=== PATIENT | female | born 1955 ===

== ENCOUNTER 2021-06-29 13:57 | Outpatient (CLI) | payer OTHER | END 2021-06-29 14:08 | disposition home or self-care (01) | LOC: TOM 13:57 | PROVIDERS: ATTEND Urology | DX: N20.0 Calculus of kidney (principal); N20.1 Calculus of ureter ==

== ENCOUNTER 2021-06-30 07:30 | Outpatient (CLI) | payer OTHER | END 2021-06-30 07:31 | disposition home or self-care (01) | LOC: LAB 07:30 | PROVIDERS: ATTEND Urology | DX: N20.0 Calculus of kidney (principal) ==

== ENCOUNTER 2021-07-13 07:13 | Outpatient (CLI) | payer OTHER | END 2021-07-13 07:33 | disposition home or self-care (01) | LOC: LAB 07:13 | PROVIDERS: ATTEND Urology | DX: E03.9 Hypothyroidism, unspecified (principal); N20.0 Calculus of kidney; R31.0 Gross hematuria ==

== ENCOUNTER 2021-09-08 06:26 | Outpatient (CLI) | payer OTHER | END 2021-09-08 06:27 | disposition home or self-care (01) | LOC: LAB 06:26 | PROVIDERS: ATTEND Urology | DX: N20.0 Calculus of kidney (principal) ==

== ENCOUNTER 2021-09-14 12:15 | Inpatient (IN) | payer OTHER ==
[~2021-09-14] VITALS: Ht 149.9 cm; Wt 54.4 kg
[2021-09-16] MEDS ORDERED: SYNTHROID50 MCG (08:18)
[2021-09-16] MEDS ORDERED: FUSION PLUS CA1 EACH (08:18)
== END 2021-09-17 11:43 | disposition home or self-care (01) | DRG 694 ==
LOC: O/R 09-15 11:20 → SURG 09-15 11:20 → SURH 09-15 12:15 → SURG 09-15 14:42
PROVIDERS: ADMIT Urology; ATTEND Urology
PROC: BT1F1ZZ Fluoroscopy of Left Kidney, Ureter and Bladder using Low Osmolar Contrast (ICD-10-PCS; 2021-09-15)
PROC: 0TC18ZZ Extirpation of Matter from Left Kidney, Via Natural or Artificial Opening Endoscopic (ICD-10-PCS; principal; 2021-09-15 10:00)
DX: N20.0 Calculus of kidney (principal)

== ENCOUNTER 2021-09-23 12:01 | Outpatient (CLI) | payer OTHER ==
[~2021-09-23 12:01] MED LIST: FUSION PLUS CA1 EACH; SYNTHROID50 MCG
== END 2021-09-23 12:10 | disposition home or self-care (01) ==
LOC: RAD 12:01
PROVIDERS: ATTEND Urology
DX: N20.0 Calculus of kidney (principal)

== ENCOUNTER → 2021-11-04 06:31 | Outpatient (CLI) | payer OTHER | END | disposition home or self-care (01) | LOC: LAB 06:31 | PROVIDERS: ATTEND Urology | DX: N20.0 Calculus of kidney (principal) ==